=== PATIENT | female | born 1965 | race Caucasian/White ===

== ENCOUNTER 2017-12-25 20:13 | Inpatient (IN) | payer MEDICAID ==
[~2017-12-25] VITALS: Ht 165.1 cm; Wt 50.1 kg
[2017-12-25] MEDS ORDERED: SODIUM CHLORIDE 0.9% 1,000 ML IV ONE (21:30)
[2017-12-25 21:44] LABS: BASOPHILS % (AUTO) 0.7 % (0.0-2.0); EOSINOPHILS % (AUTO) 2.2 % (1.0-6.0); HEMATOCRIT 23.5 % (36-46); HEMOGLOBIN 7.6 g/dL (12.0-16.0); LYMPHOCYTES # (AUTO) 1.1 K/uL (1.0-4.8); MEAN CORPUSCULAR HEMOGLOBIN 24.4 pg (26.0-34.0); MEAN CORPUSCULAR HGB CONC 32.3 G/dL (31.0-37.0); MEAN CORPUSCULAR VOLUME 76 fL (80-100); MONOCYTES # (AUTO) 0.5 K/uL (0.1-1.0); MONOCYTES % (AUTO) 6.7 % (2.0-9.0); NEUTROPHILS % (AUTO) 76.4 % (40.0-70.0); PLATELET COUNT (AUTO) 602 K/uL (150-450); RED BLOOD CELL COUNT(AUTO) 3.11 MIL/uL (4.00-5.20); RED CELL DISTRIBUTION WIDTH 17.8 % (11.5-14.5)
[2017-12-25 21:54] LABS: ANION GAP 7 mmol/L (8-16); CALCIUM, TOTAL 8.6 mg/dL (8.8-10.5); CARBON DIOXIDE 27 mmol/L (22-29); CHLORIDE 93 mmol/L (98-107); CREATININE 0.75 mg/dL (0.60-1.30); GLOMERULAR FILTR. RATE CALC > 60 mL/min (>60); POTASSIUM 4.5 mmol/L (3.5-5.1); SODIUM SERUM 127 mmol/L (136-145); UREA NITROGEN, BLOOD 8 mg/dL (7-18)
[2017-12-25] MEDS ORDERED: ACETAMINOPHEN 500 MG TABLET PO ONE (22:00)
[2017-12-25 22:12] LABS: ALANINE AMINOTRANSFERASE 25 U/L (12-78); ALKALINE PHOSPHATASE 268 U/L (46-116); ASPARTATE AMINOTRANSFERASE 25 U/L (15-37); BILIRUBIN,TOTAL 0.3 mg/dL (0.1-1.0); GLUCOSE,RANDOM 114 mg/dL (70-110); TOTAL PROTEIN, SERUM 8.6 g/dL (6.4-8.2)
[2017-12-25 22:32] LABS: CREATINE KINASE, TOTAL 18 U/L (26-192)
[2017-12-25] MEDS ORDERED: CefTRIAXone SODIUM 1 GM in DEXTROSE 5%-WATER 10 ML IV ONE (23:15)
[2017-12-25] MEDS ORDERED: AZITHROMYCIN 500 MG/NS 250 ML IV ONE (23:15)
[2017-12-25 23:29] VITALS: BP 148/74
[2017-12-25] MEDS ORDERED: SODIUM CHLORIDE 0.9% 250 ML IV ONE (23:49)
[2017-12-26] VITALS (12 sets, daily range): BP systolic 91–148; BP diastolic 53–79
[2017-12-26] MEDS ORDERED: ACETAMINOPHEN 325 MG TABLET PO PRN (00:30)
[2017-12-26] MEDS ORDERED: SODIUM CHLORIDE 0.9% 1,000 ML IV ONE ×2 (00:30→07:45)
[2017-12-26] MEDS ORDERED: 0.9% SODIUM CHLORIDE 10 ML SYRINGE IVP PRN (00:30)
[2017-12-26] MEDS ORDERED: SODIUM CHLORIDE 0.9% 500 ML IV ONE (02:18)
[2017-12-26] MEDS ORDERED: MAGNESIUM HYDROXIDE SUSPENSION 30 ML UDCUP PO PRN (07:45)
[2017-12-26] MEDS: PANTOPRAZOLE SODIUM 40 MG DR TABLET PO SCH (08:31)
[2017-12-26] MEDS: DOCUSATE SODIUM 100 MG CAPSULE PO SCH ×2 (08:31→21:39)
[2017-12-26] MEDS ORDERED: IOVERSOL 350 MG/ML 100 ML VIAL ONE (09:24)
[2017-12-26] MEDS ORDERED: SODIUM CHLORIDE 0.9% 100 ML ONE (09:24)
[2017-12-26] MEDS ORDERED: SODIUM CHLORIDE 3% 15 ML NEB SOLUTION NEB ONE (11:00)
[2017-12-26] MEDS: ACETAMINOPHEN 325 MG TABLET PO PRN (15:45)
[2017-12-26 18:38] LABS: INR 1.1 (0.9-1.1); PROTHROMBIN TIME 11.3 SEC (9.4-11.6)
[2017-12-26] MEDS: PIPERACILLIN/TAZO 3.375 GM/D5W 50 ML IV SCH ×2 (18:40→21:40)
[2017-12-26] MEDS ORDERED: SODIUM CHLORIDE 0.9% 250 ML IV ONE (21:33)
[2017-12-27 00:29] VITALS: BP 114/58
[2017-12-27 03:43] VITALS: BP 141/79
[2017-12-27] MEDS: PIPERACILLIN/TAZO 3.375 GM/D5W 50 ML IV SCH ×4 (06:00→23:54)
[2017-12-27] MEDS: ACETAMINOPHEN 325 MG TABLET PO PRN ×2 (06:00→21:15)
[2017-12-27 06:16] LABS: BASOPHILS % (AUTO) 0.3 % (0.0-2.0); EOSINOPHILS % (AUTO) 0.7 % (1.0-6.0); HEMATOCRIT 28.6 % (36-46); HEMOGLOBIN 9.3 g/dL (12.0-16.0); LYMPHOCYTES # (AUTO) 0.6 K/uL (1.0-4.8); LYMPHOCYTES % (AUTO) 6.2 % (22.0-44.0); MEAN CORPUSCULAR HEMOGLOBIN 25.3 pg (26.0-34.0); MEAN CORPUSCULAR HGB CONC 32.6 G/dL (31.0-37.0); MEAN CORPUSCULAR VOLUME 78 fL (80-100); MONOCYTES # (AUTO) 0.4 K/uL (0.1-1.0); MONOCYTES % (AUTO) 4.3 % (2.0-9.0); NEUTROPHILS # (AUTO) 8.9 K/uL (1.8-7.7); PLATELET COUNT (AUTO) 632 K/uL (150-450); RED BLOOD CELL COUNT(AUTO) 3.68 MIL/uL (4.00-5.20); RED CELL DISTRIBUTION WIDTH 17.9 % (11.5-14.5)
[2017-12-27 06:19] LABS: NEUTROPHILS % (AUTO) 88.5 % (40.0-70.0)
[2017-12-27 06:25] LABS: ALANINE AMINOTRANSFERASE 21 U/L (12-78); ALBUMIN 1.7 g/dL (3.4-5.0); ALKALINE PHOSPHATASE 238 U/L (46-116); ANION GAP 11 mmol/L (8-16); ASPARTATE AMINOTRANSFERASE 18 U/L (15-37); BILIRUBIN,TOTAL 0.4 mg/dL (0.1-1.0); CALCIUM, TOTAL 8.6 mg/dL (8.8-10.5); CARBON DIOXIDE 23 mmol/L (22-29); CHLORIDE 97 mmol/L (98-107); CREATININE 0.69 mg/dL (0.60-1.30); GLOMERULAR FILTR. RATE CALC > 60 mL/min (>60); GLUCOSE,RANDOM 93 mg/dL (70-110); POTASSIUM 3.7 mmol/L (3.5-5.1); SODIUM SERUM 131 mmol/L (136-145); TOTAL PROTEIN, SERUM 7.7 g/dL (6.4-8.2); UREA NITROGEN, BLOOD 5 mg/dL (7-18)
[2017-12-27 07:43] VITALS: BP 100/62
[2017-12-27] MEDS ORDERED: MIDAZOLAM HCL 2 MG/2 ML VIAL ONE (10:54)
[2017-12-27] MEDS ORDERED: NALOXONE HCL 0.4 MG/ML VIAL ONE (10:54)
[2017-12-27] MEDS ORDERED: FentaNYL CITRATE-PF 100 MCG/2 ML VIAL ONE (10:54)
[2017-12-27] MEDS ORDERED: FLUMAZENIL 0.1 MG/ML 5 ML VIAL IVP ONE (10:54)
[2017-12-27] MEDS ORDERED: LIDOCAINE HCL/PF 1% 30 ML VIAL ONE (10:55)
[2017-12-27] MEDS ORDERED: FentaNYL CITRATE-PF 100 MCG/2 ML VIAL IVP ONE (11:53)
[2017-12-27] MEDS ORDERED: MIDAZOLAM HCL 2 MG/2 ML VIAL IVP ONE (11:53)
[2017-12-27] MEDS: PANTOPRAZOLE SODIUM 40 MG DR TABLET PO SCH (13:37)
[2017-12-27] MEDS: DOCUSATE SODIUM 100 MG CAPSULE PO SCH ×2 (13:38→21:15)
[2017-12-27 15:51] VITALS: BP 121/66
[2017-12-27] MEDS: VANCOMYCIN HCL 500 MG in DEXTROSE 5%-WATER 100 ML IV SCH (16:28)
[2017-12-27 20:39] VITALS: BP 99/67
[2017-12-28 00:48] VITALS: BP 98/62
[2017-12-28] MEDS: VANCOMYCIN HCL 500 MG in DEXTROSE 5%-WATER 100 ML IV SCH ×3 (01:57→15:01)
[2017-12-28 05:46] VITALS: BP 131/80
[2017-12-28] MEDS: PIPERACILLIN/TAZO 3.375 GM/D5W 50 ML IV SCH ×3 (05:51→16:19)
[2017-12-28 06:39] LABS: ANION GAP 9 mmol/L (8-16); CALCIUM, TOTAL 8.9 mg/dL (8.8-10.5); CARBON DIOXIDE 26 mmol/L (22-29); CHLORIDE 97 mmol/L (98-107); CREATININE 0.76 mg/dL (0.60-1.30); GLOMERULAR FILTR. RATE CALC > 60 mL/min (>60); GLUCOSE,RANDOM 101 mg/dL (70-110); POTASSIUM 3.8 mmol/L (3.5-5.1); SODIUM SERUM 132 mmol/L (136-145); UREA NITROGEN, BLOOD 7 mg/dL (7-18)
[2017-12-28] MEDS: PANTOPRAZOLE SODIUM 40 MG DR TABLET PO SCH (08:02)
[2017-12-28] MEDS: DOCUSATE SODIUM 100 MG CAPSULE PO SCH ×2 (08:02→21:00)
[2017-12-28 08:18] VITALS: BP 111/56
[2017-12-28] MEDS: ACETAMINOPHEN 325 MG TABLET PO PRN (08:18)
[2017-12-28 11:57] VITALS: BP 115/61
[2017-12-28 15:43] VITALS: BP 94/49
[2017-12-28 20:16] VITALS: BP 132/76
[2017-12-29] MEDS: VANCOMYCIN HCL 500 MG in DEXTROSE 5%-WATER 100 ML IV SCH ×3 (00:21→16:40)
[2017-12-29] MEDS: PIPERACILLIN/TAZO 3.375 GM/D5W 50 ML IV SCH ×5 (00:21→22:38)
[2017-12-29 00:39] VITALS: BP 136/76
[2017-12-29 04:19] VITALS: BP 108/55
[2017-12-29 06:55] LABS: ANION GAP 7 mmol/L (8-16); CALCIUM, TOTAL 8.3 mg/dL (8.8-10.5); CARBON DIOXIDE 25 mmol/L (22-29); CHLORIDE 93 mmol/L (98-107); CREATININE 0.86 mg/dL (0.60-1.30); GLOMERULAR FILTR. RATE CALC > 60 mL/min (>60); GLUCOSE,RANDOM 99 mg/dL (70-110); POTASSIUM 3.8 mmol/L (3.5-5.1); SODIUM SERUM 125 mmol/L (136-145); UREA NITROGEN, BLOOD 6 mg/dL (7-18)
[2017-12-29 07:00] VITALS: BP 121/62
[2017-12-29 07:24] LABS: VANCOMYCIN,RANDOM 12.7 mcg/mL (25.0-50.0)
[2017-12-29] MEDS: DOCUSATE SODIUM 100 MG CAPSULE PO SCH ×3 (09:12→21:20)
[2017-12-29] MEDS: PANTOPRAZOLE SODIUM 40 MG DR TABLET PO SCH (09:13)
[2017-12-29 12:22] VITALS: BP 100/58
[2017-12-29 16:41] VITALS: BP 118/75
[2017-12-29 19:30] VITALS: BP 121/79
[2017-12-29] MEDS ORDERED: SODIUM CHLORIDE 0.9% 250 ML IV ONE (22:43)
[2017-12-29] MEDS: VANCOMYCIN HCL 750 MG in DEXTROSE 5%-WATER 250 ML IV SCH (23:38)
[2017-12-30] VITALS (7 sets, daily range): BP systolic 97–123; BP diastolic 54–76
[2017-12-30] MEDS: PIPERACILLIN/TAZO 3.375 GM/D5W 50 ML IV SCH ×4 (04:53→23:41)
[2017-12-30 07:30] LABS: ANION GAP 7 mmol/L (8-16); CALCIUM, TOTAL 8.7 mg/dL (8.8-10.5); CARBON DIOXIDE 25 mmol/L (22-29); CHLORIDE 93 mmol/L (98-107); CREATININE 0.81 mg/dL (0.60-1.30); GLOMERULAR FILTR. RATE CALC > 60 mL/min (>60); GLUCOSE,RANDOM 100 mg/dL (70-110); POTASSIUM 3.9 mmol/L (3.5-5.1); SODIUM SERUM 125 mmol/L (136-145); UREA NITROGEN, BLOOD 6 mg/dL (7-18)
[2017-12-30] MEDS: PANTOPRAZOLE SODIUM 40 MG DR TABLET PO SCH (08:51)
[2017-12-30] MEDS: VANCOMYCIN HCL 750 MG in DEXTROSE 5%-WATER 250 ML IV SCH ×2 (08:51→16:07)
[2017-12-30] MEDS: DOCUSATE SODIUM 100 MG CAPSULE PO SCH ×2 (08:51→20:34)
[2017-12-30] MEDS: ACETAMINOPHEN 325 MG TABLET PO PRN (23:47)
[2017-12-31] MEDS: VANCOMYCIN HCL 750 MG in DEXTROSE 5%-WATER 250 ML IV SCH ×2 (00:24→08:24)
[2017-12-31] MEDS: PIPERACILLIN/TAZO 3.375 GM/D5W 50 ML IV SCH (04:46)
[2017-12-31 04:49] VITALS: BP 96/58
[2017-12-31 07:08] LABS: ANION GAP 8 mmol/L (8-16); CARBON DIOXIDE 26 mmol/L (22-29); CHLORIDE 98 mmol/L (98-107); CREATININE 0.83 mg/dL (0.60-1.30); GLOMERULAR FILTR. RATE CALC > 60 mL/min (>60); GLUCOSE,RANDOM 112 mg/dL (70-110); POTASSIUM 3.7 mmol/L (3.5-5.1); SODIUM SERUM 132 mmol/L (136-145); UREA NITROGEN, BLOOD 9 mg/dL (7-18); VANCOMYCIN,RANDOM 24.1 mcg/mL (25.0-50.0)
[2017-12-31 07:49] VITALS: BP 91/53
[2017-12-31] MEDS: DOCUSATE SODIUM 100 MG CAPSULE PO SCH ×2 (08:24→20:41)
[2017-12-31] MEDS: PANTOPRAZOLE SODIUM 40 MG DR TABLET PO SCH (08:24)
[2017-12-31 11:50] VITALS: BP 118/68
[2017-12-31] MEDS: DOXYCYCLINE 100 MG CAPSULE PO SCH ×2 (12:24→20:41)
[2017-12-31 16:19] VITALS: BP 121/61
[2017-12-31] MEDS: ACETAMINOPHEN 325 MG TABLET PO PRN (17:59)
[2017-12-31] MEDS ORDERED: SODIUM CHLORIDE 0.9% 500 ML IV ONE (18:45)
[2017-12-31 19:39] VITALS: BP 112/54
[2017-12-31 23:30] VITALS: BP 101/60
[2018-01-01 04:40] VITALS: BP 132/74
[2018-01-01 06:10] LABS: BASOPHILS % (AUTO) 0.6 % (0.0-2.0); EOSINOPHILS % (AUTO) 1.8 % (1.0-6.0); HEMATOCRIT 27.7 % (36-46); HEMOGLOBIN 9.3 g/dL (12.0-16.0); LYMPHOCYTES # (AUTO) 1.1 K/uL (1.0-4.8); LYMPHOCYTES % (AUTO) 10.2 % (22.0-44.0); MEAN CORPUSCULAR HEMOGLOBIN 25.9 pg (26.0-34.0); MEAN CORPUSCULAR HGB CONC 33.4 G/dL (31.0-37.0); MEAN CORPUSCULAR VOLUME 78 fL (80-100); MONOCYTES # (AUTO) 0.7 K/uL (0.1-1.0); MONOCYTES % (AUTO) 6.6 % (2.0-9.0); NEUTROPHILS # (AUTO) 8.6 K/uL (1.8-7.7); NEUTROPHILS % (AUTO) 80.8 % (40.0-70.0); PLATELET COUNT (AUTO) 657 K/uL (150-450); RED BLOOD CELL COUNT(AUTO) 3.57 MIL/uL (4.00-5.20); RED CELL DISTRIBUTION WIDTH 18.9 % (11.5-14.5)
[2018-01-01 06:44] LABS: ANION GAP 9 mmol/L (8-16); CALCIUM, TOTAL 9.3 mg/dL (8.8-10.5); CARBON DIOXIDE 25 mmol/L (22-29); CHLORIDE 99 mmol/L (98-107); CREATININE 0.74 mg/dL (0.60-1.30); GLOMERULAR FILTR. RATE CALC > 60 mL/min (>60); GLUCOSE,RANDOM 86 mg/dL (70-110); POTASSIUM 3.9 mmol/L (3.5-5.1); SODIUM SERUM 133 mmol/L (136-145); UREA NITROGEN, BLOOD 8 mg/dL (7-18)
[2018-01-01 07:24] VITALS: BP 118/64
[2018-01-01] MEDS: DOXYCYCLINE 100 MG CAPSULE PO SCH ×2 (08:22→20:01)
[2018-01-01] MEDS: DOCUSATE SODIUM 100 MG CAPSULE PO SCH ×2 (09:00→20:01)
[2018-01-01] MEDS: PANTOPRAZOLE SODIUM 40 MG DR TABLET PO SCH (10:34)
[2018-01-01 11:29] VITALS: BP 125/73
[2018-01-01] MEDS: ACETAMINOPHEN 325 MG TABLET PO PRN (12:05)
[2018-01-01] MEDS ORDERED: SODIUM CHLORIDE 0.9% 1,000 ML IV ONE (14:45)
[2018-01-01] MEDS ORDERED: RINGERS SOLUTION,LACTATED 1,000 ML IV ONE ×2 (15:38→16:15)
[2018-01-01 16:03] VITALS: BP 102/64
[2018-01-01] MEDS ORDERED: LIDOCAINE HCL/PF 1% 30 ML VIAL ONE (16:10)
[2018-01-01] MEDS ORDERED: BUPIVACAINE/EPI/PF 0.5% 30 ML VIAL ONE (16:10)
[2018-01-01] MEDS ORDERED: BACITRACIN 28.4 GM OINTMENT TP ONE (16:51)
[2018-01-01 17:53] VITALS: BP 97/59
[2018-01-01 19:55] VITALS: BP 98/59
[2018-01-02] VITALS (7 sets, daily range): BP systolic 102–132; BP diastolic 64–78
[2018-01-02] MEDS ORDERED: LIDOCAINE HCL/PF 2% 5 ML VIAL IM ONE (04:56)
[2018-01-02] MEDS ORDERED: DEXAMETHASONE SOD PHOS 4 MG/ML VIAL IVP ONE (04:56)
[2018-01-02] MEDS ORDERED: PROPOFOL 1% 20 ML VIAL IVP ONE (04:56)
[2018-01-02] MEDS ORDERED: MIDAZOLAM HCL 2 MG/2 ML VIAL IVP ONE (04:56)
[2018-01-02] MEDS ORDERED: FentaNYL CITRATE-PF 100 MCG/2 ML VIAL IVP ONE (04:56)
[2018-01-02] MEDS ORDERED: ONDANSETRON HCL 4 MG/2 ML VIAL IVP ONE (04:56)
[2018-01-02] MEDS: DOXYCYCLINE 100 MG CAPSULE PO SCH ×2 (08:20→20:18)
[2018-01-02] MEDS: PANTOPRAZOLE SODIUM 40 MG DR TABLET PO SCH (08:20)
[2018-01-02] MEDS: DOCUSATE SODIUM 100 MG CAPSULE PO SCH ×2 (08:20→20:18)
[2018-01-02] MEDS: ACETAMINOPHEN 325 MG TABLET PO PRN (23:57)
[2018-01-03 01:45] LABS: APPEARANCE,URINE CLEAR (CLEAR); BILIRUBIN,URINE NEGATIVE (NEGATIVE); GLUCOSE, URINE (UA) NEGATIVE (NEGATIVE); KETONES,URINE NEGATIVE (NEGATIVE); LEUKOCYTE ESTERASE ,URINE MODERATE (NEGATIVE); NITRATE,URINE NEGATIVE (NEGATIVE); OCCULT BLOOD,URINE SMALL (NEGATIVE); PROTEIN,URINE NEGATIVE (NEGATIVE); UROBILINOGEN,URINE 0.2 mg/dL (<=1.0)
[2018-01-03 02:08] LABS: BACTERIA,URINE Rare /HPF (None Seen); SQUAMOUS EPITHELIAL CELL,UR Rare /LPF (None Seen)
[2018-01-03 04:50] VITALS: BP 99/57
[2018-01-03 08:09] VITALS: BP 114/67
[2018-01-03] MEDS: PANTOPRAZOLE SODIUM 40 MG DR TABLET PO SCH (08:14)
[2018-01-03] MEDS: DOXYCYCLINE 100 MG CAPSULE PO SCH ×2 (08:14→20:57)
[2018-01-03] MEDS: DOCUSATE SODIUM 100 MG CAPSULE PO SCH ×2 (08:17→20:57)
[2018-01-03 11:26] VITALS: BP 133/74
[2018-01-03] MEDS: NACL ISOOSM IV SCH (11:43)
[2018-01-03] MEDS: FLUCONAZOLE IV SCH (11:43)
[2018-01-03] MEDS ORDERED: VANCOMYCIN HCL 1 GM/D5% WATER 200 ML IV ONE (13:15)
[2018-01-03 15:42] VITALS: BP 138/83
[2018-01-03] MEDS: ACETAMINOPHEN 325 MG TABLET PO PRN (17:21)
[2018-01-03 20:00] VITALS: BP 109/52
[2018-01-03] MEDS ORDERED: VANCOMYCIN HCL 1 GM/D5% WATER 200 ML IV SCH (21:00)
[2018-01-03 23:00] VITALS: BP 95/57
[2018-01-04] VITALS (7 sets, daily range): BP systolic 96–141; BP diastolic 58–86
[2018-01-04] MEDS: ACETAMINOPHEN 325 MG TABLET PO PRN ×2 (05:28→20:00)
[2018-01-04 06:02] LABS: BASOPHILS % (AUTO) 0.4 % (0.0-2.0); EOSINOPHILS % (AUTO) 0.7 % (1.0-6.0); HEMATOCRIT 28.9 % (36-46); HEMOGLOBIN 9.5 g/dL (12.0-16.0); LYMPHOCYTES # (AUTO) 0.8 K/uL (1.0-4.8); MEAN CORPUSCULAR HEMOGLOBIN 25.8 pg (26.0-34.0); MEAN CORPUSCULAR HGB CONC 32.8 G/dL (31.0-37.0); MEAN CORPUSCULAR VOLUME 79 fL (80-100); MONOCYTES # (AUTO) 0.7 K/uL (0.1-1.0); MONOCYTES % (AUTO) 6.4 % (2.0-9.0); NEUTROPHILS # (AUTO) 9.8 K/uL (1.8-7.7); PLATELET COUNT (AUTO) 714 K/uL (150-450); RED BLOOD CELL COUNT(AUTO) 3.68 MIL/uL (4.00-5.20); RED CELL DISTRIBUTION WIDTH 19.2 % (11.5-14.5)
[2018-01-04 06:29] LABS: ANION GAP 9 mmol/L (8-16); CALCIUM, TOTAL 9.2 mg/dL (8.8-10.5); CARBON DIOXIDE 26 mmol/L (22-29); CHLORIDE 95 mmol/L (98-107); CREATININE 0.83 mg/dL (0.60-1.30); GLOMERULAR FILTR. RATE CALC > 60 mL/min (>60); GLUCOSE,RANDOM 95 mg/dL (70-110); SODIUM SERUM 130 mmol/L (136-145); UREA NITROGEN, BLOOD 8 mg/dL (7-18)
[2018-01-04 06:47] LABS: NEUTROPHILS % (AUTO) 85.5 % (40.0-70.0)
[2018-01-04 07:02] LABS: VANCOMYCIN,RANDOM 21.1 mcg/mL (25.0-50.0)
[2018-01-04] MEDS: DOCUSATE SODIUM 100 MG CAPSULE PO SCH ×2 (08:36→20:00)
[2018-01-04] MEDS: PANTOPRAZOLE SODIUM 40 MG DR TABLET PO SCH (08:36)
[2018-01-04] MEDS: DOXYCYCLINE 100 MG CAPSULE PO SCH ×2 (08:36→20:00)
[2018-01-04] MEDS: VANCOMYCIN HCL 1.25 GM in DEXTROSE 5%-WATER 250 ML IV SCH ×2 (10:37→20:00)
[2018-01-04] MEDS: NACL ISOOSM IV SCH (13:24)
[2018-01-04] MEDS: FLUCONAZOLE IV SCH (13:24)
[2018-01-04] MEDS ORDERED: SODIUM CHLORIDE 0.9% 500 ML IV ONE (13:30)
[2018-01-04 14:46] LABS: APPEARANCE,URINE CLOUDY (CLEAR); BILIRUBIN,URINE NEGATIVE (NEGATIVE); GLUCOSE, URINE (UA) NEGATIVE (NEGATIVE); KETONES,URINE NEGATIVE (NEGATIVE); LEUKOCYTE ESTERASE ,URINE LARGE (NEGATIVE); NITRATE,URINE NEGATIVE (NEGATIVE); OCCULT BLOOD,URINE MODERATE (NEGATIVE); PROTEIN,URINE NEGATIVE (NEGATIVE); UROBILINOGEN,URINE 0.2 mg/dL (<=1.0)
[2018-01-04 15:09] LABS: BACTERIA,URINE Few /HPF (None Seen); WBC,URINE 51-100 /HPF (0-5)
[2018-01-04 15:10] LABS: SQUAMOUS EPITHELIAL CELL,UR Moderate /LPF (None Seen)
[2018-01-04] MEDS: PIPERACILLIN/TAZO 3.375 GM/D5W 50 ML IV SCH (19:24)
[2018-01-05] MEDS: PIPERACILLIN/TAZO 3.375 GM/D5W 50 ML IV SCH ×5 (00:03→23:15)
[2018-01-05 04:29] VITALS: BP 118/71
[2018-01-05 06:01] LABS: BASOPHILS % (AUTO) 0.3 % (0.0-2.0); EOSINOPHILS % (AUTO) 1.5 % (1.0-6.0); HEMOGLOBIN 8.3 g/dL (12.0-16.0); LYMPHOCYTES % (AUTO) 9.9 % (22.0-44.0); MEAN CORPUSCULAR HEMOGLOBIN 25.9 pg (26.0-34.0); MEAN CORPUSCULAR HGB CONC 33.1 G/dL (31.0-37.0); MEAN CORPUSCULAR VOLUME 78 fL (80-100); MONOCYTES # (AUTO) 0.7 K/uL (0.1-1.0); MONOCYTES % (AUTO) 6.7 % (2.0-9.0); NEUTROPHILS % (AUTO) 81.6 % (40.0-70.0); PLATELET COUNT (AUTO) 664 K/uL (150-450); RED CELL DISTRIBUTION WIDTH 19.2 % (11.5-14.5)
[2018-01-05 06:20] LABS: ANION GAP 10 mmol/L (8-16); CALCIUM, TOTAL 9.2 mg/dL (8.8-10.5); CARBON DIOXIDE 26 mmol/L (22-29); CHLORIDE 97 mmol/L (98-107); CREATININE 0.82 mg/dL (0.60-1.30); GLOMERULAR FILTR. RATE CALC > 60 mL/min (>60); GLUCOSE,RANDOM 96 mg/dL (70-110); POTASSIUM 3.5 mmol/L (3.5-5.1); SODIUM SERUM 133 mmol/L (136-145); UREA NITROGEN, BLOOD 9 mg/dL (7-18); VANCOMYCIN,RANDOM 22.6 mcg/mL (25.0-50.0)
[2018-01-05] MEDS: VANCOMYCIN HCL 1.25 GM in DEXTROSE 5%-WATER 250 ML IV SCH ×2 (07:54→20:05)
[2018-01-05] MEDS: PANTOPRAZOLE SODIUM 40 MG DR TABLET PO SCH (07:54)
[2018-01-05] MEDS: DOCUSATE SODIUM 100 MG CAPSULE PO SCH ×2 (07:54→20:05)
[2018-01-05] MEDS: DOXYCYCLINE 100 MG CAPSULE PO SCH ×2 (07:54→20:05)
[2018-01-05 08:07] VITALS: BP 139/79
[2018-01-05] MEDS: FLUCONAZOLE IV SCH (11:36)
[2018-01-05] MEDS: NACL ISOOSM IV SCH (11:36)
[2018-01-05 13:30] VITALS: BP 120/68
[2018-01-05 16:21] VITALS: BP 129/68
[2018-01-05 19:59] VITALS: BP 111/63
[2018-01-05] MEDS ORDERED: SODIUM CHLORIDE 0.9% 500 ML IV ONE (23:04)
[2018-01-05 23:36] VITALS: BP 113/55
[2018-01-06 04:30] VITALS: BP 114/66
[2018-01-06] MEDS: PIPERACILLIN/TAZO 3.375 GM/D5W 50 ML IV SCH ×3 (05:48→19:07)
[2018-01-06 06:35] LABS: BASOPHILS % (AUTO) 0.6 % (0.0-2.0); EOSINOPHILS % (AUTO) 1.1 % (1.0-6.0); HEMATOCRIT 23.5 % (36-46); HEMOGLOBIN 7.8 g/dL (12.0-16.0); LYMPHOCYTES # (AUTO) 0.9 K/uL (1.0-4.8); LYMPHOCYTES % (AUTO) 10.4 % (22.0-44.0); MEAN CORPUSCULAR HGB CONC 33.2 G/dL (31.0-37.0); MEAN CORPUSCULAR VOLUME 78 fL (80-100); MONOCYTES # (AUTO) 0.7 K/uL (0.1-1.0); MONOCYTES % (AUTO) 7.6 % (2.0-9.0); NEUTROPHILS # (AUTO) 6.9 K/uL (1.8-7.7); NEUTROPHILS % (AUTO) 80.3 % (40.0-70.0); PLATELET COUNT (AUTO) 665 K/uL (150-450); RED BLOOD CELL COUNT(AUTO) 3.01 MIL/uL (4.00-5.20)
[2018-01-06 06:43] LABS: ANION GAP 9 mmol/L (8-16); CALCIUM, TOTAL 9.1 mg/dL (8.8-10.5); CARBON DIOXIDE 26 mmol/L (22-29); CHLORIDE 94 mmol/L (98-107); CREATININE 0.79 mg/dL (0.60-1.30); GLOMERULAR FILTR. RATE CALC > 60 mL/min (>60); GLUCOSE,RANDOM 100 mg/dL (70-110); POTASSIUM 3.4 mmol/L (3.5-5.1); SODIUM SERUM 129 mmol/L (136-145); UREA NITROGEN, BLOOD 7 mg/dL (7-18)
[2018-01-06 07:06] VITALS: BP 114/67
[2018-01-06] MEDS: PANTOPRAZOLE SODIUM 40 MG DR TABLET PO SCH (08:26)
[2018-01-06] MEDS: DOCUSATE SODIUM 100 MG CAPSULE PO SCH ×2 (08:26→19:47)
[2018-01-06] MEDS: VANCOMYCIN HCL 1.25 GM in DEXTROSE 5%-WATER 250 ML IV SCH ×2 (08:26→19:48)
[2018-01-06] MEDS: DOXYCYCLINE 100 MG CAPSULE PO SCH ×2 (08:26→19:47)
[2018-01-06 11:12] VITALS: BP 99/59
[2018-01-06] MEDS ORDERED: POTASSIUM CHL 10 MEQ/WATER 50 ML IV PRN (13:45)
[2018-01-06] MEDS: NACL ISOOSM IV SCH (13:50)
[2018-01-06] MEDS: FLUCONAZOLE IV SCH (13:50)
[2018-01-06] MEDS: POTASSIUM CHLORIDE 20 MEQ ER TABLET PO PRN (15:04)
[2018-01-06 15:35] VITALS: BP 118/69
[2018-01-06] MEDS ORDERED: INFLUENZA VIRUS VACCINE QVS 2017-18 (3YR+)/PF 60 MCG/0.5 ML SYRINGE IM ONE (15:45)
[2018-01-06 19:36] VITALS: BP 120/74
[2018-01-06 23:26] VITALS: BP 124/67
[2018-01-07] MEDS: PIPERACILLIN/TAZO 3.375 GM/D5W 50 ML IV SCH ×2 (00:10→05:46)
[2018-01-07 04:58] VITALS: BP 118/67
[2018-01-07 05:45] LABS: CALCIUM, TOTAL 9.3 mg/dL (8.8-10.5); CREATININE 1.21 mg/dL (0.60-1.30); POTASSIUM 3.8 mmol/L (3.5-5.1); VANCOMYCIN,RANDOM 32.2 mcg/mL (25.0-50.0)
[2018-01-07 07:11] VITALS: BP 98/67
[2018-01-07] MEDS ORDERED: VANCOMYCIN HCL 1 GM/D5% WATER 200 ML IV SCH (08:00)
[2018-01-07] MEDS: DOCUSATE SODIUM 100 MG CAPSULE PO SCH ×2 (08:14→20:17)
[2018-01-07] MEDS: DOXYCYCLINE 100 MG CAPSULE PO SCH (08:14)
[2018-01-07] MEDS: PANTOPRAZOLE SODIUM 40 MG DR TABLET PO SCH (08:14)
[2018-01-07 11:09] VITALS: BP 96/59
[2018-01-07] MEDS ORDERED: GADOBUTROL 1 MMOL/ML 10 ML VIAL IVP ONE (12:44)
[2018-01-07] MEDS ORDERED: ACETAMINOPHEN 325 MG TABLET PO SCH (13:00)
[2018-01-07 16:20] VITALS: BP 101/60
[2018-01-07] MEDS: FLUCONAZOLE IV SCH (17:49)
[2018-01-07] MEDS: NACL ISOOSM IV SCH (17:49)
[2018-01-07] MEDS: DEXTROSE 5% IV SCH (18:08)
[2018-01-07] MEDS: WATER IV SCH (18:08)
[2018-01-07] MEDS: AMPHOTERICIN B LIPID COMPLEX IV SCH (18:08)
[2018-01-07] MEDS ORDERED: SODIUM CHLORIDE 0.9% 500 ML IV ONE (18:10)
[2018-01-07] MEDS ORDERED: *CLINICAL-RX DOSING [ENTER DRUG IN COMMENTS] CLINICAL ONE (18:30)
[2018-01-07 18:48] LABS: MAGNESIUM 1.7 mg/dL (1.80-2.40)
[2018-01-07 19:49] VITALS: BP 110/65
[2018-01-07] MEDS: SODIUM CHLORIDE 0.9% 250 ML IV SCH (21:50)
[2018-01-07 23:33] VITALS: BP 138/81
[2018-01-07] MEDS: ACETAMINOPHEN 325 MG TABLET PO PRN (23:36)
[2018-01-08] MEDS: SODIUM CHLORIDE 0.9% 250 ML IV SCH ×2 (00:27→20:39)
[2018-01-08 04:38] VITALS: BP 96/61
[2018-01-08 06:34] LABS: CALCIUM, TOTAL 9.2 mg/dL (8.8-10.5); CREATININE 1.25 mg/dL (0.60-1.30); MAGNESIUM 1.4 mg/dL (1.80-2.40); PHOSPHORUS 4.1 mg/dL (2.5-4.9); POTASSIUM 3.4 mmol/L (3.5-5.1)
[2018-01-08 08:13] VITALS: BP 104/70
[2018-01-08] MEDS: DOCUSATE SODIUM 100 MG CAPSULE PO SCH ×3 (09:00→20:38)
[2018-01-08] MEDS: FLUCONAZOLE 200 MG TABLET PO SCH (10:16)
[2018-01-08] MEDS: PANTOPRAZOLE SODIUM 40 MG DR TABLET PO SCH (10:16)
[2018-01-08 12:30] VITALS: BP 110/70
[2018-01-08] MEDS ORDERED: DiphenhydrAMINE HCL 25 MG CAPSULE PO SCH (13:00)
[2018-01-08] MEDS ORDERED: GADOBUTROL 1 MMOL/ML 10 ML VIAL IVP ONE (16:00)
[2018-01-08] MEDS ORDERED: MAGNESIUM SULFATE 4 GM/WATER 100 ML IV PRN (18:30)
[2018-01-08 19:00] VITALS: BP 122/69
[2018-01-08] MEDS: ACETAMINOPHEN 325 MG TABLET PO SCH (20:38)
[2018-01-08] MEDS: DiphenhydrAMINE HCL 25 MG CAPSULE PO SCH (20:38)
[2018-01-08] MEDS: WATER IV SCH (20:40)
[2018-01-08] MEDS: AMPHOTERICIN B LIPID COMPLEX IV SCH (20:40)
[2018-01-08] MEDS: DEXTROSE 5% IV SCH (20:40)
[2018-01-08] MEDS: POTASSIUM CHLORIDE 20 MEQ ER TABLET PO PRN (20:41)
[2018-01-08] MEDS ORDERED: MAGNESIUM SULFATE 2 GM in DEXTROSE 5%-WATER 50 ML IV ONE (21:45)
[2018-01-08 23:00] VITALS: BP 132/60
[2018-01-09] MEDS: SODIUM CHLORIDE 0.9% 250 ML IV SCH ×3 (00:03→23:00)
[2018-01-09] MEDS: ACETAMINOPHEN 325 MG TABLET PO SCH ×2 (00:03→19:30)
[2018-01-09 04:00] VITALS: BP 93/51
[2018-01-09 07:22] LABS: CALCIUM, TOTAL 8.9 mg/dL (8.8-10.5); CREATININE 1.32 mg/dL (0.60-1.30); MAGNESIUM 2.2 mg/dL (1.80-2.40); PHOSPHORUS 3.9 mg/dL (2.5-4.9); POTASSIUM 3.9 mmol/L (3.5-5.1)
[2018-01-09] MEDS: DOCUSATE SODIUM 100 MG CAPSULE PO SCH ×2 (08:28→20:05)
[2018-01-09] MEDS: FLUCONAZOLE 200 MG TABLET PO SCH (08:29)
[2018-01-09] MEDS: PANTOPRAZOLE SODIUM 40 MG DR TABLET PO SCH (08:29)
[2018-01-09 08:42] VITALS: BP 102/67
[2018-01-09 13:21] VITALS: BP 95/66
[2018-01-09] MEDS: ACETAMINOPHEN 325 MG TABLET PO PRN (14:05)
[2018-01-09 17:03] VITALS: BP 92/57
[2018-01-09] MEDS: DiphenhydrAMINE HCL 25 MG CAPSULE PO SCH (18:15)
[2018-01-09] MEDS: AMPHOTERICIN B LIPID COMPLEX IV SCH (20:03)
[2018-01-09] MEDS: WATER IV SCH (20:03)
[2018-01-09] MEDS: DEXTROSE 5% IV SCH (20:03)
[2018-01-09 20:05] VITALS: BP 119/73
[2018-01-09 23:58] VITALS: BP 158/93
[2018-01-10 04:49] VITALS: BP 105/60
[2018-01-10 06:41] LABS: CALCIUM, TOTAL 9.2 mg/dL (8.8-10.5); CREATININE 1.32 mg/dL (0.60-1.30); MAGNESIUM 1.6 mg/dL (1.80-2.40); POTASSIUM 3.2 mmol/L (3.5-5.1)
[2018-01-10 07:36] VITALS: BP 109/68
[2018-01-10] MEDS: FLUCONAZOLE 200 MG TABLET PO SCH (09:25)
[2018-01-10] MEDS: PANTOPRAZOLE SODIUM 40 MG DR TABLET PO SCH (09:25)
[2018-01-10] MEDS: DOCUSATE SODIUM 100 MG CAPSULE PO SCH ×2 (09:25→21:00)
[2018-01-10] MEDS: POTASSIUM CHLORIDE 20 MEQ ER TABLET PO PRN (09:29)
[2018-01-10] MEDS: MAGNESIUM OXIDE 400 MG TABLET PO PRN (09:29)
[2018-01-10 11:31] VITALS: BP 111/73
[2018-01-10 11:34] LABS: PROTHROMBIN TIME 10.8 SEC (9.4-11.6)
[2018-01-10 17:06] VITALS: BP 115/70
[2018-01-10] MEDS: ACETAMINOPHEN 325 MG TABLET PO SCH (19:02)
[2018-01-10] MEDS: DiphenhydrAMINE HCL 25 MG CAPSULE PO SCH (19:02)
[2018-01-10 19:35] VITALS: BP 138/85
[2018-01-10] MEDS: SODIUM CHLORIDE 0.9% 250 ML IV SCH ×2 (19:40→23:47)
[2018-01-10] MEDS: DEXTROSE 5% IV SCH (20:36)
[2018-01-10] MEDS: WATER IV SCH (20:36)
[2018-01-10] MEDS: AMPHOTERICIN B LIPID COMPLEX IV SCH (20:36)
[2018-01-10] MEDS: DEXTROSE 5%-WATER 250 ML IV PRN (20:37)
[2018-01-10 23:33] VITALS: BP 125/69
[2018-01-11] VITALS (8 sets, daily range): BP systolic 117–169; BP diastolic 63–101
[2018-01-11 06:17] LABS: BASOPHILS % (AUTO) 0.6 % (0.0-2.0); EOSINOPHILS % (AUTO) 0.6 % (1.0-6.0); HEMATOCRIT 23.3 % (36-46); HEMOGLOBIN 7.9 g/dL (12.0-16.0); LYMPHOCYTES # (AUTO) 0.7 K/uL (1.0-4.8); LYMPHOCYTES % (AUTO) 7.5 % (22.0-44.0); MEAN CORPUSCULAR HEMOGLOBIN 26.4 pg (26.0-34.0); MEAN CORPUSCULAR HGB CONC 33.8 G/dL (31.0-37.0); MEAN CORPUSCULAR VOLUME 78 fL (80-100); MONOCYTES # (AUTO) 0.3 K/uL (0.1-1.0); MONOCYTES % (AUTO) 2.7 % (2.0-9.0); NEUTROPHILS # (AUTO) 8.6 K/uL (1.8-7.7); PLATELET COUNT (AUTO) 464 K/uL (150-450); RED BLOOD CELL COUNT(AUTO) 2.98 MIL/uL (4.00-5.20); RED CELL DISTRIBUTION WIDTH 19.6 % (11.5-14.5)
[2018-01-11 06:21] LABS: NEUTROPHILS % (AUTO) 88.6 % (40.0-70.0)
[2018-01-11 06:25] LABS: CALCIUM, TOTAL 9.2 mg/dL (8.8-10.5); CREATININE 1.18 mg/dL (0.60-1.30); MAGNESIUM 1.5 mg/dL (1.80-2.40); PHOSPHORUS 3.9 mg/dL (2.5-4.9); POTASSIUM 3.4 mmol/L (3.5-5.1)
[2018-01-11] MEDS: POTASSIUM CHLORIDE 20 MEQ ER TABLET PO PRN (06:47)
[2018-01-11] MEDS: DOCUSATE SODIUM 100 MG CAPSULE PO SCH ×2 (09:12→21:00)
[2018-01-11] MEDS: PANTOPRAZOLE SODIUM 40 MG DR TABLET PO SCH (09:12)
[2018-01-11] MEDS: FLUCONAZOLE 200 MG TABLET PO SCH (09:12)
[2018-01-11] MEDS ORDERED: MAGNESIUM SULFATE 2 GM in DEXTROSE 5%-WATER 50 ML IV PRN (10:15)
[2018-01-11] MEDS ORDERED: SODIUM CHLORIDE 0.9% 500 ML IV ONE (11:21)
[2018-01-11] MEDS: ACETAMINOPHEN 325 MG TABLET PO SCH (19:37)
[2018-01-11] MEDS: DiphenhydrAMINE HCL 25 MG CAPSULE PO SCH (19:37)
[2018-01-11] MEDS: DEXTROSE 5%-WATER 250 ML IV PRN (20:22)
[2018-01-11] MEDS: SODIUM CHLORIDE 0.9% 250 ML IV SCH ×2 (20:23→23:20)
[2018-01-11] MEDS: DEXTROSE 5% IV SCH (21:07)
[2018-01-11] MEDS: WATER IV SCH (21:07)
[2018-01-11] MEDS: AMPHOTERICIN B LIPID COMPLEX IV SCH (21:07)
[2018-01-11] MEDS: ACETAMINOPHEN 325 MG TABLET PO PRN (23:54)
[2018-01-12 04:37] VITALS: BP 120/73
[2018-01-12 07:43] LABS: ALBUMIN 1.7 g/dL (3.4-5.0); BILIRUBIN,TOTAL 0.4 mg/dL (0.1-1.0); CALCIUM, TOTAL 9.2 mg/dL (8.8-10.5); CREATININE 1.3 mg/dL (0.60-1.30); MAGNESIUM 1.9 mg/dL (1.80-2.40); PHOSPHORUS 5.1 mg/dL (2.5-4.9); POTASSIUM 3.3 mmol/L (3.5-5.1); TOTAL PROTEIN, SERUM 7.2 g/dL (6.4-8.2)
[2018-01-12] MEDS: PANTOPRAZOLE SODIUM 40 MG DR TABLET PO SCH (08:16)
[2018-01-12] MEDS: FLUCONAZOLE 200 MG TABLET PO SCH (08:16)
[2018-01-12] MEDS: DOCUSATE SODIUM 100 MG CAPSULE PO SCH ×2 (08:17→21:19)
[2018-01-12 08:18] VITALS: BP 117/80
[2018-01-12] MEDS: POTASSIUM CHLORIDE 20 MEQ ER TABLET PO PRN (08:25)
[2018-01-12 13:46] VITALS: BP 129/78
[2018-01-12 16:21] VITALS: BP 135/81
[2018-01-12] MEDS: SODIUM CHLORIDE 0.9% 250 ML IV SCH (18:38)
[2018-01-12] MEDS: DiphenhydrAMINE HCL 25 MG CAPSULE PO SCH (18:43)
[2018-01-12] MEDS: ACETAMINOPHEN 325 MG TABLET PO SCH (18:44)
[2018-01-12 19:00] VITALS: BP 126/73
[2018-01-12] MEDS: WATER IV SCH (21:17)
[2018-01-12] MEDS: DEXTROSE 5% IV SCH (21:17)
[2018-01-12] MEDS: AMPHOTERICIN B LIPID COMPLEX IV SCH (21:17)
[2018-01-12] MEDS ORDERED: DEXTROSE 5%-WATER 50 ML IV ONE (23:40)
[2018-01-12 23:54] VITALS: BP 161/81
[2018-01-13 04:00] VITALS: BP 152/98
[2018-01-13 06:01] LABS: ALBUMIN 2.1 g/dL (3.4-5.0); BILIRUBIN,TOTAL 0.5 mg/dL (0.1-1.0); CALCIUM, TOTAL 10.2 mg/dL (8.8-10.5); CREATININE 1.62 mg/dL (0.60-1.30); MAGNESIUM 1.8 mg/dL (1.80-2.40); PHOSPHORUS 5.5 mg/dL (2.5-4.9); POTASSIUM 4.4 mmol/L (3.5-5.1); TOTAL PROTEIN, SERUM 8.7 g/dL (6.4-8.2)
[2018-01-13 07:44] VITALS: BP 110/64
[2018-01-13] MEDS: DOCUSATE SODIUM 100 MG CAPSULE PO SCH ×2 (08:00→20:54)
[2018-01-13] MEDS: PANTOPRAZOLE SODIUM 40 MG DR TABLET PO SCH (08:00)
[2018-01-13] MEDS: FLUCONAZOLE 200 MG TABLET PO SCH (08:00)
[2018-01-13 11:50] VITALS: BP 123/72
[2018-01-13 15:51] VITALS: BP 119/81
[2018-01-13] MEDS: SODIUM CHLORIDE 0.9% 250 ML IV SCH (18:50)
[2018-01-13] MEDS: DiphenhydrAMINE HCL 25 MG CAPSULE PO SCH (18:51)
[2018-01-13] MEDS: ACETAMINOPHEN 325 MG TABLET PO SCH (18:51)
[2018-01-13] MEDS ORDERED: SODIUM CHLORIDE 0.9% 500 ML IV ONE (18:57)
[2018-01-13 19:56] VITALS: BP 117/73
[2018-01-13] MEDS: AMPHOTERICIN B LIPID COMPLEX IV SCH (20:55)
[2018-01-13] MEDS: WATER IV SCH (20:55)
[2018-01-13] MEDS: DEXTROSE 5% IV SCH (20:55)
[2018-01-14] VITALS (7 sets, daily range): BP systolic 109–149; BP diastolic 58–88
[2018-01-14] MEDS: ACETAMINOPHEN 325 MG TABLET PO SCH ×2 (05:06→19:12)
[2018-01-14] MEDS: ACETAMINOPHEN 325 MG TABLET PO PRN (05:06)
[2018-01-14 06:16] LABS: BASOPHILS % (AUTO) 0.6 % (0.0-2.0); EOSINOPHILS % (AUTO) 0.6 % (1.0-6.0); HEMATOCRIT 26.6 % (36-46); HEMOGLOBIN 8.7 g/dL (12.0-16.0); LYMPHOCYTES # (AUTO) 0.5 K/uL (1.0-4.8); LYMPHOCYTES % (AUTO) 4.9 % (22.0-44.0); MEAN CORPUSCULAR HEMOGLOBIN 25.9 pg (26.0-34.0); MEAN CORPUSCULAR HGB CONC 32.8 G/dL (31.0-37.0); MEAN CORPUSCULAR VOLUME 79 fL (80-100); MONOCYTES # (AUTO) 0.2 K/uL (0.1-1.0); MONOCYTES % (AUTO) 2.2 % (2.0-9.0); NEUTROPHILS # (AUTO) 9.5 K/uL (1.8-7.7); PLATELET COUNT (AUTO) 428 K/uL (150-450); RED BLOOD CELL COUNT(AUTO) 3.38 MIL/uL (4.00-5.20); RED CELL DISTRIBUTION WIDTH 18.8 % (11.5-14.5)
[2018-01-14 06:45] LABS: BILIRUBIN,TOTAL 0.6 mg/dL (0.1-1.0); CALCIUM, TOTAL 9.3 mg/dL (8.8-10.5); CREATININE 1.6 mg/dL (0.60-1.30); MAGNESIUM 1.4 mg/dL (1.80-2.40); POTASSIUM 3.2 mmol/L (3.5-5.1)
[2018-01-14 06:57] LABS: NEUTROPHILS % (AUTO) 91.7 % (40.0-70.0)
[2018-01-14] MEDS: PANTOPRAZOLE SODIUM 40 MG DR TABLET PO SCH (08:21)
[2018-01-14] MEDS: FLUCONAZOLE 200 MG TABLET PO SCH (08:21)
[2018-01-14] MEDS: DOCUSATE SODIUM 100 MG CAPSULE PO SCH ×2 (08:21→20:06)
[2018-01-14 12:51] LABS: APPEARANCE,URINE CLOUDY (CLEAR); BILIRUBIN,URINE NEGATIVE (NEGATIVE); GLUCOSE, URINE (UA) NEGATIVE (NEGATIVE); KETONES,URINE NEGATIVE (NEGATIVE); LEUKOCYTE ESTERASE ,URINE MODERATE (NEGATIVE); NITRATE,URINE NEGATIVE (NEGATIVE); OCCULT BLOOD,URINE SMALL (NEGATIVE); PROTEIN,URINE NEGATIVE (NEGATIVE); UROBILINOGEN,URINE 0.2 mg/dL (<=1.0)
[2018-01-14 13:02] LABS: BACTERIA,URINE Few /HPF (None Seen)
[2018-01-14] MEDS: DiphenhydrAMINE HCL 25 MG CAPSULE PO SCH (19:12)
[2018-01-14] MEDS: SODIUM CHLORIDE 0.9% 250 ML IV SCH (19:13)
[2018-01-14] MEDS ORDERED: DEXTROSE 5%-WATER 50 ML IV ONE (20:03)
[2018-01-14] MEDS: WATER IV SCH (20:06)
[2018-01-14] MEDS: AMPHOTERICIN B LIPID COMPLEX IV SCH (20:06)
[2018-01-14] MEDS: DEXTROSE 5% IV SCH (20:06)
[2018-01-15] MEDS: SODIUM CHLORIDE 0.9% 250 ML IV SCH ×2 (04:14→16:53)
[2018-01-15] MEDS: DEXTROSE 5%-WATER 250 ML IV PRN (04:15)
[2018-01-15 04:40] VITALS: BP 137/64
[2018-01-15 07:04] LABS: ALBUMIN 1.9 g/dL (3.4-5.0); BILIRUBIN,TOTAL 0.5 mg/dL (0.1-1.0); CALCIUM, TOTAL 9.1 mg/dL (8.8-10.5); CREATININE 1.43 mg/dL (0.60-1.30); MAGNESIUM 1.3 mg/dL (1.80-2.40); PHOSPHORUS 4.2 mg/dL (2.5-4.9); TOTAL PROTEIN, SERUM 7.9 g/dL (6.4-8.2)
[2018-01-15 07:41] LABS: POTASSIUM 2.9 mmol/L (3.5-5.1)
[2018-01-15] MEDS: DOCUSATE SODIUM 100 MG CAPSULE PO SCH (08:11)
[2018-01-15] MEDS: ACETAMINOPHEN 325 MG TABLET PO PRN (08:11)
[2018-01-15] MEDS: PANTOPRAZOLE SODIUM 40 MG DR TABLET PO SCH (08:11)
[2018-01-15] MEDS: FLUCONAZOLE 200 MG TABLET PO SCH (08:11)
[2018-01-15] MEDS: MAGNESIUM OXIDE 400 MG TABLET PO PRN (08:15)
[2018-01-15 08:29] VITALS: BP 126/75
[2018-01-15] MEDS ORDERED: SODIUM CHLORIDE 0.9% 500 ML IV ONE (08:44)
[2018-01-15] MEDS ORDERED: POTASSIUM CHLORIDE 20 MEQ ER TABLET PO ONE (10:15)
[2018-01-15] MEDS ORDERED: MAGNESIUM OXIDE 400 MG TABLET PO SCH (10:45)
[2018-01-15 12:20] VITALS: BP 99/65
[2018-01-15 15:53] VITALS: BP 122/73
[2018-01-15] MEDS: DiphenhydrAMINE HCL 25 MG CAPSULE PO SCH (16:53)
[2018-01-20] MEDS ORDERED: WATER IV SCH (09:00)
[2018-01-20] MEDS ORDERED: DEXTROSE 5% IV SCH (09:00)
[2018-01-20] MEDS ORDERED: AMPHOTERICIN B LIPID COMPLEX IV SCH (09:00)
== END 2018-01-15 17:33 | DRG 724 ==
LOC: EMS 20:15 → 5S 22:26 → 5N 23:27 → 6N 12-26 12:51 → 5N 12-26 17:51 → 6N 01-01 16:30
PROVIDERS: ADMIT Internal Medicine; ATTEND Internal Medicine
PROC: 30233N1 Transfusion of Nonautologous Red Blood Cells into Peripheral Vein, Percutaneous Approach (ICD-10-PCS; 2017-12-26)
PROC: 0WB63ZX Excision of Neck, Percutaneous Approach, Diagnostic (ICD-10-PCS; 2017-12-27)
PROC: 0JB80ZZ Excision of Abdomen Subcutaneous Tissue and Fascia, Open Approach (ICD-10-PCS; principal; 2018-01-01 15:30)
PROC: 02HV33Z Insertion of Infusion Device into Superior Vena Cava, Percutaneous Approach (ICD-10-PCS; 2018-01-10)
DX: B38.7 Disseminated coccidioidomycosis (principal); J98.51 Mediastinitis; A41.9 Sepsis, unspecified organism; E43 Unspecified severe protein-calorie malnutrition; M46.24 Osteomyelitis of vertebra, thoracic region; E87.1 Hypo-osmolality and hyponatremia; M46.27 Osteomyelitis of vertebra, lumbosacral region; B38.2 Pulmonary coccidioidomycosis, unspecified; B38.89 Other forms of coccidioidomycosis; L02.11 Cutaneous abscess of neck; B95.7 Other staphylococcus as the cause of diseases classified elsewhere; R19.00 Intra-abdominal and pelvic swelling, mass and lump, unspecified site; M84.48XA Pathological fracture, other site, initial encounter for fracture; N39.0 Urinary tract infection, site not specified; D50.9 Iron deficiency anemia, unspecified; I88.9 Nonspecific lymphadenitis, unspecified; J20.9 Acute bronchitis, unspecified; Z68.1 Body mass index [BMI] 19.9 or less, adult
CPT/HCPCS: 21550; 36245; 36430; 36569; 70491; 70544; 70553; 71046; 71260; 72052; 72072; 72156; 72157; 72158; 76000; 76937; 82271; 83605; 83735; 84100; 84132; 84145; 86480; 86850; 86900; 86901; 86920; 87015; 87040; 87070; 87081; 87086; 87205; 88304; 88305; 88312; 88342; 92610; 93005; 93306; 93970; 94640; 97161; 97530; 99285; A9585; J0287; J0456; J0696; J1100; J1450; J2250; J2310; J2405; J2543; J2704; J3010; J3370; J3475; J3480; J3490; J7030; J7040; J7050; J7060; J7120; P9016

== ENCOUNTER 2019-05-05 13:43 | Emergency (ER) | payer MEDICAID ==
[~2019-05-05] VITALS: Ht 144.8 cm; Wt 53.0 kg
[2019-05-05] MEDS ORDERED: MORPHINE SULFATE 4 MG/ML SYRINGE IVP ONE (16:45)
[2019-05-05] MEDS ORDERED: MORPHINE SULFATE 2 MG/ML SYRINGE IVP ONE (16:45)
[2019-05-05] MEDS ORDERED: ONDANSETRON HCL 4 MG/2 ML VIAL IVP ONE (16:45)
[2019-05-05 17:08] LABS: BASOPHILS % (AUTO) 0.9 % (0.0-2.0); EOSINOPHILS % (AUTO) 1.7 % (1.0-6.0); HEMATOCRIT 38.2 % (36-46); HEMOGLOBIN 12.6 g/dL (12.0-16.0); LYMPHOCYTES # (AUTO) 1.4 K/uL (1.0-4.8); LYMPHOCYTES % (AUTO) 19.5 % (22.0-44.0); MEAN CORPUSCULAR HGB CONC 32.9 G/dL (31.0-37.0); MEAN CORPUSCULAR VOLUME 88 fL (80-100); MONOCYTES # (AUTO) 0.5 K/uL (0.1-1.0); MONOCYTES % (AUTO) 6.6 % (2.0-9.0); NEUTROPHILS % (AUTO) 71.3 % (40.0-70.0); PLATELET COUNT (AUTO) 360 K/uL (150-450); RED BLOOD CELL COUNT(AUTO) 4.34 MIL/uL (4.00-5.20); RED CELL DISTRIBUTION WIDTH 17.4 % (11.5-14.5)
[2019-05-05 17:16] LABS: ANION GAP 7 mmol/L (8-16); CALCIUM, TOTAL 9.4 mg/dL (8.8-10.5); CARBON DIOXIDE 28 mmol/L (22-29); CHLORIDE 105 mmol/L (98-107); CREATININE 0.74 mg/dL (0.60-1.30); GLOMERULAR FILTR. RATE CALC > 60 mL/min (>60); GLUCOSE,RANDOM 94 mg/dL (70-110); POTASSIUM 3.3 mmol/L (3.5-5.1); SODIUM SERUM 140 mmol/L (136-145); UREA NITROGEN, BLOOD 12 mg/dL (7-18)
[2019-05-05 17:22] LABS: ALANINE AMINOTRANSFERASE 10 U/L (12-78); ALBUMIN 3.5 g/dL (3.4-5.0); ALKALINE PHOSPHATASE 161 U/L (46-116); ASPARTATE AMINOTRANSFERASE 16 U/L (15-37); BILIRUBIN,TOTAL 0.4 mg/dL (0.1-1.0); LIPASE 93 U/L (73-393); TOTAL PROTEIN, SERUM 8.5 g/dL (6.4-8.2)
[2019-05-05 17:25] LABS: LACTIC ACID 0.7 mmol/L (0.4-2.0)
[2019-05-05 17:33] LABS: C-REACTIVE PROTEIN QUANT 0.58 mg/dL (0.00-0.30)
[2019-05-05 17:46] LABS: APPEARANCE,URINE CLEAR (CLEAR); BILIRUBIN,URINE NEGATIVE (NEGATIVE); GLUCOSE, URINE (UA) NEGATIVE (NEGATIVE); KETONES,URINE NEGATIVE (NEGATIVE); LEUKOCYTE ESTERASE ,URINE NEGATIVE (NEGATIVE); NITRATE,URINE NEGATIVE (NEGATIVE); OCCULT BLOOD,URINE SMALL (NEGATIVE); PH,URINE 5.5 (5.0-8.0); PROTEIN,URINE NEGATIVE (NEGATIVE); UROBILINOGEN,URINE 0.2 mg/dL (<=1.0)
[2019-05-05 17:50] LABS: BACTERIA,URINE Few /HPF (None Seen); RBC,URINE 0-2 /HPF (0-2); SQUAMOUS EPITHELIAL CELL,UR Many /LPF (None Seen); WBC,URINE 0-2 /HPF (0-5)
[2019-05-05] MEDS ORDERED: IOVERSOL 320 MG/ML 100 ML VIAL ONE (18:04)
[2019-05-05] MEDS ORDERED: SODIUM CHLORIDE 0.9% 100 ML ONE (18:04)
[2019-05-05 19:23] LABS: ERYTHROCYTE SEDIMENTATION RATE 87 MM/HR (0-20)
[2019-05-05] MEDS ORDERED: CefTRIAXone SODIUM 2 GM in DEXTROSE 5%-WATER 50 ML IV ONE (21:15)
[2019-05-05] MEDS ORDERED: VANCOMYCIN HCL 1 GM/D5% WATER 200 ML IV ONE (21:15)
[2019-05-05] MEDS ORDERED: AMPHOTERICIN B LIPOSOME IV ONE (22:00)
[2019-05-05] MEDS ORDERED: WATER IV ONE (22:00)
[2019-05-05] MEDS ORDERED: SODIUM CHLORIDE 0.9% 1,000 ML IV ONE (22:00)
[2019-05-05] MEDS ORDERED: DEXTROSE 5% IV ONE (22:00)
[2019-05-05] MEDS ORDERED: POTASSIUM CHLORIDE 10% 40 MEQ/30 ML LIQUID UDCUP PO ONE (23:15)
[2019-05-06 02:10] VITALS: BP 155/98
== END 2019-05-06 01:45 | disposition short-term general hospital (02) ==
LOC: EMS 13:48
DX: G06.2 Extradural and subdural abscess, unspecified (principal); G95.20 Unspecified cord compression; B38.7 Disseminated coccidioidomycosis; M51.84 Other intervertebral disc disorders, thoracic region
CPT/HCPCS: 36415; 71260; 74177; 80053; 81001; 83605; 83690; 85025; 85651; 86140; 87040; 96365; 96366; 96367; 96368; 96375; 99285; J0696; J2270; J2405; J3370; J7030; J7050; J7060 ×2; Q9967; 51702; 72193; 74160